=== PATIENT | male | born 1975 | race Two or more races ===

== ENCOUNTER 2018-01-11 13:49 | Emergency (ER) | payer MEDICAID ==
[~2018-01-11] VITALS: Ht 172.7 cm; Wt 120.0 kg
[~2018-01-11 13:49] MED LIST: PANT40TA39 PO
[2018-01-11] MEDS ORDERED: IBUP-1984 PO (14:54)
[2018-01-11 15:06] VITALS: BP 150/92
== END 2018-01-11 15:07 | disposition home or self-care (01) ==
LOC: ER 13:50
DX: M79.672 Pain in left foot (principal); J45.909 Unspecified asthma, uncomplicated; Z86.14 Personal history of Methicillin resistant Staphylococcus aureus infection; Z59.0 Homelessness; Z79.899 Other long term (current) drug therapy
CPT/HCPCS: 73630; 99284